=== PATIENT | female | born 1960 | race African-American/Black ===

== ENCOUNTER 2021-03-05 19:48 | Emergency (ER) | payer OTHER ==
[~2021-03-05] VITALS: Ht 165.1 cm; Wt 72.6 kg
--- NOTE | 2021-03-05 20:10 | NUR ---
Pt. arrived from home [facility] due to constipation starting 2 hrs aircraft [employer]. Pt. has 10/10 pain in rectum and abdomen. Pt. offered commode and is attempting to pass stool.
[2021-03-05] MEDS ORDERED: BISACODYL 10 MG SUPP.RECT RC ONE ×2 (20:15→20:22)
--- NOTE | 2021-03-05 20:15 | NUR ---
xray at bedside
[2021-03-05] MEDS ORDERED: MINERAL OIL FLEET ENEMA 133 ML BOTTLE RC ONE ×2 (20:45)
--- NOTE | 2021-03-05 20:46 | NUR ---
After fleet enema provided pt. was able to pass stool and is no longer in pain.
[2021-03-05] MEDS ORDERED: DOCU250C14 PO (21:12)
--- NOTE | 2021-03-05 21:19 | NUR ---
Patient discharged to home in stable condition. Written and verbal after care instructions given. Patient verbalizes understanding of instructions. Stressed follow up or return to ER for worsening s/s. Pt. denies any pain or discomfort, pt. is no longer constipated. Pt. picked up by family member. Vss and all belongings went with pt.
[2021-03-05 22:11] VITALS: BP 122/67
== END 2021-03-05 21:19 | disposition home or self-care (01) ==
LOC: ER 19:48
DX: K56.41 Fecal impaction (principal); Z82.49 Family history of ischemic heart disease and other diseases of the circulatory system; E78.5 Hyperlipidemia, unspecified; R03.0 Elevated blood-pressure reading, without diagnosis of hypertension; F17.210 Nicotine dependence, cigarettes, uncomplicated; F31.9 Bipolar disorder, unspecified; E11.9 Type 2 diabetes mellitus without complications
CPT/HCPCS: 74021; A4663

== ENCOUNTER 2021-03-07 10:22 | Emergency (ER) | payer OTHER ==
[~2021-03-07] VITALS: Ht 165.1 cm; Wt 72.6 kg
[~2021-03-07 10:22] MED LIST: DOCU250C14 PO
[2021-03-07] MEDS ORDERED: FLEET ENEMA 133 ML BOTTLE RC ONE ×2 (11:00→11:01)
--- NOTE | 2021-03-07 11:45 | NUR ---
Pt states feeling better after enema and having a large BM.
[2021-03-07 12:05] VITALS: BP 102/60
--- NOTE | 2021-03-07 12:05 | NUR ---
Patient discharged to home in stable condition. Written and verbal after care instructions given. Patient verbalizes understanding of instructions. Stressed follow up or return to ER for worsening s/s.
== END 2021-03-07 12:06 | disposition home or self-care (01) ==
LOC: ER 10:22
DX: K59.00 Constipation, unspecified (principal); K76.0 Fatty (change of) liver, not elsewhere classified; Z88.6 Allergy status to analgesic agent; F31.9 Bipolar disorder, unspecified; E11.9 Type 2 diabetes mellitus without complications; E78.5 Hyperlipidemia, unspecified
CPT/HCPCS: A4663